=== PATIENT | male | born 1995 | race Caucasian/White ===

== ENCOUNTER → 2018-12-16 | Outpatient (CLI) | payer BC ==
--- NOTE | 2018-12-16 16:54 | Diagnostic Imaging Report ---
EXAMINATION: Chest 2 view HISTORY: Asthma FINDINGS: No comparison available. FINDINGS: Abdominal aortic ultrasound shows normal diameter. No evidence of aneurysmal dilatation. No free fluid in the abdomen. IMPRESSION: Negative abdominal aortic ultrasound for aneurysm. Dictated by: Dictated on workstation # [id number]
== END ==
LOC: RAD FS 15:17
PROVIDERS: ATTEND Nurse Practitioner Family
DX: J45.901 Unspecified asthma with (acute) exacerbation (principal)
CPT/HCPCS: 71046

== ENCOUNTER 2021-02-18 18:24 | Emergency (ER) | payer OTHER ==
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
[2021-02-18 19:24] VITALS: BP 128/81
== END 2021-02-18 19:26 | disposition home or self-care (01) ==
LOC: EDUNIT# 18:24 → ER FS 18:27
DX: S06.0X0A Concussion without loss of consciousness, initial encounter (principal); R41.3 Other amnesia; V86.05XA Driver of 3- or 4- wheeled all-terrain vehicle (ATV) injured in traffic accident, initial encounter
CPT/HCPCS: 70450